=== PATIENT | female | born 1980 | race Caucasian/White ===

== ENCOUNTER 2018-02-15 17:28 | Emergency (ER) | payer MEDICAID ==
[~2018-02-15] VITALS: Ht 162.6 cm; Wt 63.0 kg
[2018-02-15 17:35] VITALS: BP 127/91; PULSE 86; RESP 16; TEMP 98.5; O2SAT 97
--- NOTE | 2018-02-15 18:59 | PD ---
HPI Chief Complaint: Flank/Kidney Pain Time Seen by Provider: 18:50 Travel History International Travel<30 days: No Contact w/Intl Traveler<30days: No Traveled to known affect area: No History of Present Illness HPI 37yo F with PMH of nephrolithiasis presents to the ED with c/o right flank pain today. Associated with nausea, increased urinary frequency. Pt is sharp, nonradiating and moderate severity. No exacerbating or alleviating factors. Denies any fever, chest pain, sob, vomiting, abdominal pain, dysuria, hematuria , vaginal bleeding, focal weakness or numbness. Pt took BC powder. PFSH Past Medical History ?: Unknown Social History Alcohol Use: No Tobacco Use: No Substance Use: No Allergies-Medications (Allergen,Severity, Reaction): Coded Allergies: No Known Allergies (Unverified , 02/15/18) Review of Systems Except as stated in HPI: all other systems reviewed are Neg Physical Exam Narrative GENERAL: 37yo F in moderate distress. SKIN: Focused skin assessment warm/dry. HEAD: Atraumatic. Normocephalic. EYES: Pupils equal and round. No scleral icterus. No injection or drainage. ENT: No nasal bleeding or discharge. Mucous membranes pink and moist. NECK: Trachea midline. No JVD. CARDIOVASCULAR: Regular rate and rhythm. No murmur appreciated. RESPIRATORY: No accessory muscle use. Clear to auscultation. Breath sounds equal bilaterally. GASTROINTESTINAL: Abdomen soft, non-tender, nondistended. No rebound tenderness or guarding. BACK: +CVA tenderness right. MUSCULOSKELETAL: No obvious deformities. No clubbing. No cyanosis. No edema. NEUROLOGICAL: Awake and alert. No obvious cranial nerve deficits. Motor grossly within normal limits. Normal speech. PSYCHIATRIC: Appropriate mood and affect; insight and judgment normal. Data Data Last Documented VS Vital Signs Date Time Temp Pulse Resp B/P (MAP) Pulse Ox O2 Delivery O2 Flow Rate FiO2 02/15/18 19:26 86 16 117/71 (86) 100 Room Air 02/15/18 17:35 98.5 Orders Orders Basic Metabolic Panel (Bmp) (02/15/18 18:55) Complete Blood Count With Diff (02/15/18 18:55) Lipase (02/15/18 18:55) Urinalysis - C+S If Indicated (02/15/18 18:55) Ct Abd/Pel W/O Iv Contrast (02/15/18 18:55) Ketorolac Inj (Toradol Inj) (02/15/18 19:00) Ed Urine Pregnancytest Poc (02/15/18 18:55) Ondansetron Odt (Zofran Odt) (02/15/18 19:00) Morphine Inj (Morphine Inj) (02/15/18 21:15) Labs Laboratory Tests Test 02/15/18 19:15 White Blood Count 8.4 TH/MM3 Red Blood Count 4.50 MIL/MM3 Hemoglobin 10.3 GM/DL Hematocrit 32.3 % Mean Corpuscular Volume 71.9 FL Mean Corpuscular Hemoglobin 22.8 PG Mean Corpuscular Hemoglobin Concent 31.8 % Red Cell Distribution Width 16.4 % Platelet Count 391 TH/MM3 Mean Platelet Volume 8.0 FL Neutrophils (%) (Auto) 59.0 % Lymphocytes (%) (Auto) 30.0 % Monocytes (%) (Auto) 8.9 % Eosinophils (%) (Auto) 1.5 % Basophils (%) (Auto) 0.6 % Neutrophils # (Auto) 5.0 TH/MM3 Lymphocytes # (Auto) 2.5 TH/MM3 Monocytes # (Auto) 0.7 TH/MM3 Eosinophils # (Auto) 0.1 TH/MM3 Basophils # (Auto) 0.1 TH/MM3 CBC Comment DIFF FINAL Differential Comment Urine Color YELLOW Urine Turbidity CLEAR Urine pH 6.5 Urine Specific [place] 1.022 Urine Protein NEG mg/dL Urine Glucose (UA) NEG mg/dL Urine Ketones NEG mg/dL Urine Occult Blood NEG Urine Nitrite NEG Urine Bilirubin NEG Urine Urobilinogen LESS THAN 2.0 MG/DL Urine Leukocyte Esterase NEG Urine RBC 2 /hpf Urine WBC LESS THAN 1 /hpf Urine Squamous Epithelial Cells 2 /hpf Urine Mucus FEW /lpf Microscopic Urinalysis Comment CULT NOT INDICATED Blood Urea Nitrogen 13 MG/DL Creatinine 0.58 MG/DL Random Glucose 81 MG/DL Calcium Level 8.8 MG/DL Sodium Level 139 MEQ/L Potassium Level 3.7 MEQ/L Chloride Level 106 MEQ/L Carbon Dioxide Level 24.0 MEQ/L Anion Gap 9 MEQ/L Estimat Glomerular Filtration Rate 117 ML/MIN Lipase 148 U/L [facility] Medical Decision Making Medical Screen Exam Complete: Yes Emergency Medical Condition: Yes Differential Diagnosis Pyelonephritis vs. nephrolithiasis Narrative Course 37yo F with right back/flank pain today. Denies any falls, no focal neurologic deficits. No red flags. Urine negative. Labs reviewed, no leukocytosis. H/H low at 10.3/32.3, no prior to compare to. Pt denies any bleeding, will have her follow up with primary care. BMP unremarkable. Normal creatinine. Lipase normal. UA showed WBC less than 1. RBC 2. CT a/p showed 3mm nonobstructing right renal stone. No findings to indicate urinary obstruction and no ureteral stone is visualized. No acute abnormality is visualized. There is a small jejunal intussusception in the left upper quadrant. There is no visible masses of obstruction. This can be frequently seen as a transient incidental finding with abdomen and pelvis CT imaging. Pt has no abdominal tenderness on exam. She had normal bowel movement today. Said nausea has resolved. Still in right sided back pain so morphine given. Only PSH is gastric sleeve. I discussed the CT finding with general surgeon labor relations consultant Dr. Robertson and he said that if she has no abdominal pain, it may be an overread when the bowel is peristalsing, may look like intussusception. Advise pt to follow up with him if she has pain. Pt is well appearing and back pain resolved after morphine. Return precautions given. Diagnosis Primary Impression: Back pain Qualified Codes: M54.9 - Dorsalgia, unspecified Referrals: Garret Robertson MD as needed Patient Instructions: General Instructions Departure Forms: Tests/Procedures Additional Instructions: Please follow up with [facility] as outpatient. If you start having abdominal pain, please return to the ED or follow up with Dr. Robertson in his clinic. Med/Other Pt SpecificInfo: Prescription(s) given Scripts Ibuprofen (Ibuprofen) 600 Mg Tab 600 MG PO Q8HR Y for PAIN, #20 TAB 0 Refills Prov: Vicenta Ludwig 02/15/18 Disposition: 01 DISCHARGE HOME Condition: Stable Vicenta Ludwig DO February 15, 2018 18:59
[2018-02-15] MEDS ORDERED: KETOROLAC TROMETHAMINE 30 MG/ML (IVP) VIAL IVP ONE (19:00)
[2018-02-15] MEDS ORDERED: ONDANSETRON ODT 4 MG TAB PO ONE (19:00)
[2018-02-15 19:26] VITALS: BP 117/71; PULSE 86; RESP 16; O2SAT 100
[2018-02-15 19:45] LABS: BASOPHIL # 0.1 TH/MM3 (0-0.2); BASOPHIL % 0.6 % (0.0-2.0); EOSINOPHIL # 0.1 TH/MM3 (0-0.4); EOSINOPHIL % 1.5 % (0.0-4.0); HEMATOCRIT 32.3 % (35.0-46.0); HEMOGLOBIN 10.3 GM/DL (11.6-15.3); LYMPHOCYTE # 2.5 TH/MM3 (1.0-4.8); MEAN CELL VOLUME 71.9 FL (80.0-100.0); MEAN CORPUSCULAR HEMOGLOBIN 22.8 PG (27.0-34.0); MEAN CORPUSCULAR HGB CONC 31.8 % (32.0-36.0); MONO % 8.9 % (0.0-8.0); MONOCYTE # 0.7 TH/MM3 (0-0.9); PLATELET COUNT 391 TH/MM3 (150-450); RED CELL DISTRIBUTION WIDTH 16.4 % (11.6-17.2); WHITE BLOOD COUNT 8.4 TH/MM3 (4.0-11.0)
[2018-02-15 19:52] LABS: BILIRUBIN, URINE NEG (NEG); BLOOD, URINE NEG (NEG); GLUCOSE,URINE NEG (NEG); KETONE, URINE NEG (NEG); MUCUS URINE FEW /lpf (OCC); NITRITE,URINE NEG (NEG); PH, URINE 6.5 (5.0-8.5); SQUAMOUS EPITHELIAL CELL URINE 2 /hpf (0-5); URINE COLOR YELLOW (YELLW/STRAW); URINE LEUKOCYTE ESTERASE NEG (NEG)
[2018-02-15 20:00] LABS: CALCIUM 8.8 MG/DL (8.5-10.1); CREATININE 0.58 MG/DL (0.50-1.00)
--- NOTE | 2018-02-15 20:00 | RADRPT ---
EXAM DATE: 02/15/2018 7:50 PM EDT AGE/SEX: 37 years / Female INDICATIONS: Right flank pain, nausea, frequent urination. CLINICAL DATA: This is the patient's initial encounter. Patient reports that signs and symptoms have been present for 1 day and indicates a pain score of 8/10. MEDICAL/SURGICAL HISTORY: None. None. RADIATION DOSE: 6.15 CTDI (mGy) COMPARISON: No prior [place] exams available for comparison. TECHNIQUE: Multiple contiguous axial images were obtained through the abdomen. Images were obtained using multiple row detector helical technique. Using dose reduction techniques, radiation dose was ke pt as low as reasonably achievable to obtain optimal diagnostic quality images. FINDINGS: Lower chest: No acute abnormality is identified. Hepatobiliary: Liver density is normal. No focal liver lesion is seen on this noncontrast examination . No calcified gallstones are present. Kidneys: No hydronephrosis or mass. There is a 3 mm nonobstructing the right mid intrarenal collectin g system. No ureteral stones are visualized. Adrenal Glands: Within normal limits. Spleen: Within normal limits. Pancreas: Within normal limits. Vascular: The aorta is nonaneurysmal. Bowel/Mesentery: Stomach demonstrates no acute finding. A small hiatal hernia is present and there is a staple line along the greater curvature of a luminally narrowed stomach characteristic of prior ga stric sleeve procedure. There is a small intussusception in the jejunum in the left upper quadrant bu t there are no signs of obstruction or mass. Colon demonstrates no acute finding. Terminal ileum is w ithin normal limits. Appendix is not identified. There is no free air or free fluid. Abdominal Wall: There is a small fat-containing umbilical hernia in the midline superior to the umbil icus. Retroperitoneum: No lymphadenopathy. Bladder: No wall thickening or mass. Reproductive: No acute abnormality. Tampon is present within the vagina. Inguinal: No lymphadenopathy or hernia. Musculoskeletal: No acute osseous abnormality is identified. CONCLUSION: 1. There is a 3 mm nonobstructing right renal stone. However, there are no findings to indicate urin vincent obstruction and no ureteral stone is visualized. No other acute abnormality is visualized. 2. There is a small jejunal intussusception in the left upper quadrant. There is no visible mass or signs of obstruction. This can frequently be seen as a transient incidental finding with abdomen and pelvis CT imaging. Electronically signed by: Zeke Nelson MD 02/15/2018 7:58 PM EDT
[2018-02-15] MEDS ORDERED: MORPHINE SULFATE 4 MG/ML INJ IV PUSH ONE (21:15)
[2018-02-15] MEDS ORDERED: IBUP-232 PO (22:01)
[2018-02-15 22:16] VITALS: BP 123/74
== END 2018-02-15 22:28 | disposition home or self-care (01) ==
LOC: NEPD 17:28
DX: M54.9 Dorsalgia, unspecified (principal)
CPT/HCPCS: 74176; 80048; 81001; 83690; 84703; 85025; 96374; 96375; 99284; J1885; J2270

== ENCOUNTER 2018-06-02 21:06 | Inpatient (IN) ==
--- NOTE | 2018-06-02 22:05 | ED ---
HPI General Chief complaint: Psychiatric Symptoms Stated complaint: Psych Eval-[place] SO Time Seen by Provider: 06/02/18 21:53 History of Present Illness HPI narrative: Patient 38-year-old female presents emergency department under Nuñez act. She states that she is been at odds with her is he has been having a fair. States that she got angry and hit the television with her left hand tonight. She mentioned that she was thinking about hurting herself but states she would never do that because she has kids to care for. She states she has been under a lot of depression as this adjustment has been very tough for her. She does admit to suicidal ideation but without specific planning. She is under Nuñez act. Other than her left hand she is endorsing some mild chest achiness from crying. No shortness of breath no abdominal pain nausea vomiting diarrhea constipation denies any ingestion tonight. Related Data Allergies Allergy/AdvReac Type Severity Reaction Status Date / Time No Known Allergies Allergy Unverified 02/15/18 17:34 Review of Systems ROS: all other systems reviewed are negative [facility] Medical History Medical History Medical history unknown (Acute) Surgical history unknown (Acute) Social History Social History Recent Travel in [facility] within the Last 8 Weeks: No Recent Out of Country Travel within the Last 8 Weeks: No Exam Narrative Exam Narrative: Patient examined with a female acid splicer present all time. GENERAL: Well-developed well-nourished, anxious, crying in no obvious distress. SKIN: Focused skin assessment warm/dry. HEAD: Atraumatic. Normocephalic. EYES: Pupils equal and round. No scleral icterus. No injection or drainage. ENT: No nasal bleeding or discharge. Mucous membranes pink and moist. NECK: Trachea midline. No JVD. CARDIOVASCULAR: Regular rhythm with minimal tachycardia.. No murmur appreciated. RESPIRATORY: No accessory muscle use. Clear to auscultation. Breath sounds equal bilaterally. GASTROINTESTINAL: Abdomen soft, non-tender, nondistended. Hepatic and splenic margins not palpable. MUSCULOSKELETAL: No obvious deformities. No clubbing. No cyanosis. No edema. Some minimal bruising to the dorsum of the left hand over the fourth metatarsal. Full nontender range of motion in all 4 extremities, full nontender range of motion all digits of the left hand. Cap refill brisk in all digits of the left hand. NEUROLOGICAL: Awake and alert. No obvious cranial nerve deficits. Motor grossly within normal limits. Normal speech. PSYCHIATRIC: Depressed mood and affect, insight normal, judgment fair. Endorses suicidal ideation without planning. Course Initial Documented Vital Signs Temperature 98.5 F 06/02/18 21:17 Pulse Rate 103 H 06/02/18 21:17 Respiratory Rate 16 06/02/18 21:17 Blood Pressure 127/76 06/02/18 21:17 Pulse Oximetry 99 06/02/18 21:17 Last Documented Vital Signs Temperature 98.5 F 06/02/18 21:17 Pulse Rate 103 H 06/02/18 21:17 Respiratory Rate 16 06/02/18 21:17 Blood Pressure 127/76 06/02/18 21:17 Pulse Oximetry 99 06/02/18 21:17 Medical Decision Making MDM Narrative Medical decision making narrative: Patient room to the emergency department, she appears depressed, is under Nuñez act, x-rays of the hand have been ordered as well as EKG. Anticipate medical clearance for psychiatric evaluation under Nuñez act. EKG shows sinus rhythm at a rate of 99, intervals within normal limits, no concerning ST segment changes. Normal axis normal R wave progression. This is a normal EKG. Hand x-ray negative. Patient has no other medical complaints of warrant further workup at this time, she is medically cleared for psychiatric evaluation Medical Screen Exam Complete: Yes Emergency Medical Condition: Yes Differential Diagnosis Differential Diagnosis: Hand sprain, hand contusion, hand fracture, ACS highly unlikely, HI highly likely, adjustment disorder, depression peer Lab Data Result diagrams: 06/02/18 22:00 06/02/18 22:00 Lab Results 06/02/18 06/02/18 Range/Units 22:00 22:00 WBC 9.0 (4.0-11.0) th/mm3 RBC 4.41 (4.00-5.30) mil/mm3 Hgb 9.6 L (11.6-15.3) gm/dL Hct 31.5 L (35.0-46.0) % MCV 71.4 L (80.0-100.0) fL MCH 21.8 L (27.0-34.0) pg MCHC 30.6 L (32.0-36.0) % RDW 17.9 H (11.6-17.2) % Plt Count 346 (150-450) th/mm3 MPV 8.0 (7.0-11.0) fL Neut % (Auto) 78.2 H (16.0-70.0) % Lymph % (Auto) 13.3 (9.0-44.0) % [place] % (Auto) 7.9 (0.0-8.0) % Eos % (Auto) 0.1 (0.0-4.0) % Baso % (Auto) 0.5 (0.0-2.0) % Neut # (Auto) 7.0 (1.8-7.7) th/mm3 Lymph # (Auto) 1.2 (1.0-4.8) th/mm3 [place] # (Auto) 0.7 (0.0-0.9) th/mm3 Eos # (Auto) 0.0 (0.0-0.4) th/mm3 Baso # (Auto) 0.0 (0.0-0.2) th/mm3 WBC Differential . Differential Comment Auto diff final Sodium 144 (136-145) meq/L Potassium 3.4 L (3.5-5.1) meq/L Chloride 108 H (98-107) meq/L Carbon Dioxide 23.6 (21.0-32.0) meq/L Anion Gap 12 (5-15) meq/L BUN 9 (7-18) mg/dL Creatinine 0.84 (0.50-1.00) mg/dL Estimated GFR 76 L (>89) mL/min Random Glucose 96 (74-106) mg/dL Calcium 8.6 (8.5-10.1) mg/dL Total Bilirubin 0.4 (0.2-1.0) mg/dL AST 10 L (15-37) U/L ALT 16 (10-53) U/L Alkaline Phosphatase 54 (45-117) U/L Total Protein 7.7 (6.4-8.2) g/dL Albumin 3.9 (3.4-5.0) g/dL TSH 1.350 (0.358-3.740) uIU/mL Serum Alcohol 71 H (0-5) mg/dL Imaging Data Radiologist's impression: Hand X-Ray 06/02/18 22:00 CONCLUSION: No evidence of fracture. Discharge Plan Discharge Disposition Patient Disposition: 30 Still Patient Physicians Team ED Provider: Bernardino Paz Primary Care Provider: Primary Care Luis Fi,No Discharge Interventions Interventions: Vital Signs Last Done: 06/02/18 21:17 Status ED Status: Medically Cleared
[2018-06-02 22:39] LABS: Baso % (Auto) 0.5 % (0.0-2.0); Eos % (Auto) 0.1 % (0.0-4.0); Hematocrit 31.5 % (35.0-46.0); Hemoglobin 9.6 gm/dL (11.6-15.3); Lymph # (Auto) 1.2 th/mm3 (1.0-4.8); Lymph % (Auto) 13.3 % (9.0-44.0); Mean Corpuscular Hemoglobin 21.8 pg (27.0-34.0); Mean Corpuscular Volume 71.4 fL (80.0-100.0); Mono # (Auto) 0.7 th/mm3 (0.0-0.9); Mono % (Auto) 7.9 % (0.0-8.0); Neut % (Auto) 78.2 % (16.0-70.0); Platelet Count 346 th/mm3 (150-450); Red Blood Count 4.41 mil/mm3 (4.00-5.30); Red Cell Distribution Width 17.9 % (11.6-17.2)
--- NOTE | 2018-06-02 22:41 | XR ---
EXAM DATE: 06/02/2018 10:35 PM EDT AGE/SEX: 38 years / Female INDICATIONS: Left lateral hand pain. Patient stated she hit it on a television. CLINICAL DATA: This is the patient's initial encounter. Patient reports that signs and symptoms have been present for 1 day and indicates a pain score of 5/10. MEDICAL/SURGICAL HISTORY: None. None. COMPARISON: No prior exams available for comparison. FINDINGS: 3 views left hand. Bone alignment within normal limits. No evidence of fracture. CONCLUSION: No evidence of fracture. Electronically signed by: Stephon Jin MD 06/02/2018 10:40 PM EDT
[2018-06-02 22:46] LABS: Mean Corpuscular HGB Conc 30.6 % (32.0-36.0)
[2018-06-02 22:51] LABS: Alanine Aminotransferase 16 U/L (10-53); Albumin 3.9 g/dL (3.4-5.0); Anion Gap 12 meq/L (5-15); Aspartate Aminotransferase 10 U/L (15-37); Blood Urea Nitrogen 9 mg/dL (7-18); Calcium 8.6 mg/dL (8.5-10.1); Carbon Dioxide 23.6 meq/L (21.0-32.0); Chloride 108 meq/L (98-107); Glomerular Filtration Rate 76 mL/min (>89); Glucose,Random 96 mg/dL (74-106); Potassium 3.4 meq/L (3.5-5.1); Sodium 144 meq/L (136-145)
[2018-06-02 23:01] LABS: Alkaline Phosphatase 54 U/L (45-117); Total Protein 7.7 g/dL (6.4-8.2)
[2018-06-02 23:03] LABS: Alcohol 71 mg/dL (0-5)
[2018-06-03] MEDS ORDERED: LORazepam 1 MG Tablet PO ONE (00:57)
[2018-06-03 09:03] LABS: Amphetamine Screen,Urine Neg (Neg); Barbiturate Screen,Urine Neg (Neg); Cannabinoid Screen,Urine Neg (Neg); Cocaine Screen,Urine Neg (Neg)
[2018-06-03 09:10] LABS: Opiate Screen,Urine Neg (Neg)
[2018-06-03] MEDS ORDERED: Aluminum/Magnesium/Simethacone Susp 30 ML UDC PO PRN (09:29)
[2018-06-03] MEDS ORDERED: buPROPion 150 MG 12 HR Tablet PO SCH (09:30)
[2018-06-03] MEDS ORDERED: LORazepam 1 MG Tablet PO PRN (09:31)
--- NOTE | 2018-06-03 09:37 | P.HPPSY ---
Provisional Diagnosis Admission Date: June 02, 2018 21:06 [place] I.: 1. Adjustment disorder with depressed mood, rule out major depressive episode 2. Alcohol use, rule out use disorder [place] II.: Deferred Competence Certification of Person's Competence To Provide Express and Informed Consent I have personally examined Nancy Stevens, a person being served at [facility] on, June 03, 2018 0933. Express and informed consent means consent voluntarily given in writing, by a competent person, after sufficient explanation and disclosure of the subject matter involved to enable the person to make a knowing and willful decision without any element of force, fraud, deceit, duress, or other form of constraint or coercion. This person is 18 years of age or older, is not now known to be incompetent to consent to treatment with a guardian advocate, and does not have a health care surrogate or proxy currently making medical treatment decisions. I have found this person to be one of the following: [X] Competent to provide express and informed consent, as defined above, for voluntary admission to this facility and is competent to provide express and informed consent for treatment. He/she has the consistent capacity to make well reasoned, willful, and knowing decisions concerning his or her medical or mental health treatment. The person fully and consistently understands the purpose of the admission for examination/placement and is fully capable of personally exercising all rights assured [place] Incompetent to provide express and informed consent to voluntary admission, and this is incompetent to provide express and informed consent to treatment. The person must be transferred to involuntary status and a petition for a guardian advocate filed with the Circuit Court. [] Refusing to provide express and informed consent to voluntary admission but is competent to provide express and informed consent for treatment. The person must be discharged or transferred to involuntary status. Form shall be completed within 24 hours of a person's arrival at the receiving facility and filed in the clinical record of each person: 1. Admitted on a voluntary basis 2. Permitted to provide express and informed consent to his/her own treatment 3. Allowed to transfer from involuntary to voluntary status 4. Prior to permitting a person to consent to his or her own treatment after having been previously found incompetent to consent to treatment. History of Present Illness Capacity: Has capacity Chief Complaint: Depression History of Present Illness: Ms. Stevens is a 38-year-old female with no reported previous psychiatric diagnoses who presents under a [place] act by law enforcement alleging that the patient has been going through a breakup with her and made statements that she is going to harm herself or someone else if she does not get some mental help. Patient's alcohol level was mildly elevated on presentation here. Reviewing the electronic medical record, I see no previous psychiatric contact within our system. Patient seen and examined. Chart reviewed. Case discussed with nurse, Rubi. On my examination today, the patient presents as irritable and dysphoric. She says that she discovered her 's repeat infidelity about a week or 2 ago and has been feeling increasingly dysphoric since then. She notes that he has been unfaithful in the past but that this is the first time in a long time that he has engaged in marital infidelity. She endorses poor sleep, poor appetite, anxiety. She denies any suicidal ideation and says that she wants to live for her children. She feels that she has always had "a mild form of depression" throughout her life. She says that she cannot cope with her emotions are present. I can elicit no hypomanic or manic symptoms presently , nor does the patient described any history of same. She denies any audiovisual hallucinations. She denies any command auditory hallucinations to hurt self or others. I can elicit no delusional material. The remainder of the psychiatric ROS is negative. The patient is agreeable to psychiatric admission for stabilization. She has no acute physical complaints. Past psychiatric history: The patient reports no previous psychiatric diagnoses. She is not currently under the care of a psychiatrist. She denies a history of psychiatric admissions or suicide attempts. Family history: Patient's father and mother both struggled with depression and both by suicide, her father by overdose in her mother by self-inflicted gunshot wound. Chemical dependency history: Patient describes social alcohol use. She denies any history of DTs or seizures. Denies any consequences from her substance use. Denies any other substance use. Social history: Patient lives with her and 3 children. She has a 16- year-old son and twin 13-year-old girls. 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 She denies any history of trauma. Denies any access to guns or firearms. Review of Systems All other systems reviewed negative except as stated in HPI [facility] - History History Provided By: Patient - Medical History Medical History: Medical History (Last Updated 06/02/18 @ 21:59 by Paul Desai) Medical history unknown Surgical history unknown - Tobacco History Second Hand Smoke Exposure: Yes Tobacco Use In Past 30 Days: Yes Smoking Status: Current every day smoker Tobacco Type: Cigarettes - Alcohol History How Often Do You Have a Drink Containing Alcohol: Monthly or less - Travel History Recent Travel in the USA Within the Last 8 Weeks: No Recent Travel Out of the Country Within the Last 8 Weeks: No - Immunization History Tetanus Immunization: Unsure Hx Influenza Vaccine This Season: No Quality Measures - Psychiatric History Psychological trauma history: See above - Patient Strengths Patient's strengths (minimum of 2): In a monitored setting. Verbally fluent. Medications and Allergies Active Medications: Active Medications Acetaminophen (Tylenol) 650 mg PO Q4H PRN PRN Reason: Pain 1-5 or Temp >101F Al Hydrox/Mg Hydrox/Simethicone (Mag-Al Plus Susp Liq) 30 ml PO Q6H PRN PRN Reason: DYSPEPSIA Al Hydroxide/Mg Hydroxide (Milk Of Magnesia Liq) 30 ml PO Q12H PRN PRN Reason: Mild Constipation Bupropion HCl (Wellbutrin Sr) 150 mg PO DAILY [facility] Flumazenil (Romazecon Inj) 0.2 mg IV.PUSH Q1M PRN PRN Reason: OVERSEDATION Folic Acid (Folic Acid) 1 mg PO DAILY [facility] Stop: 06/08/18 09:44 Hydroxyzine HCl (Atarax) 50 mg PO Q6H PRN PRN Reason: ANXIETY Lorazepam (Ativan) 1 mg PO Q4H PRN PRN Reason: for CIWA 8-10 Lorazepam (Ativan) 2 mg PO Q2H PRN PRN Reason: for CIWA 11-14 Lorazepam (Ativan Inj) 2 mg IV.PUSH Q2H PRN PRN Reason: for CIWA 11-14 Lorazepam (Ativan Inj) 2 mg IV.PUSH Q1H PRN PRN Reason: for CIWA 15-20 Lorazepam (Ativan Inj) 2 mg IV.PUSH Q15M PRN PRN Reason: for CIWA > 20 Lorazepam (Ativan Inj) 1 mg IV.PUSH Q4H PRN PRN Reason: for CIWA 8-10 Multivitamins/Minerals (Theragran-M) 1 tab PO DAILY [facility] Stop: 06/08/18 09:44 Nicotine (Habitrol 21 Mg Patch.24 Hr) 1 patch T-DERMAL DAILY PRN PRN Reason: Nicotine craving Patch Removal (Remove Old Patch) 1 each T-DERMAL DAILY [facility] Potassium Chloride (K-Dur) 20 meq PO ONCE ONE Stop: 06/03/18 09:29 Trazodone HCl (Desyrel) 50 mg PO HS PRN PRN Reason: INSOMNIA Allergies Allergy/AdvReac Type Severity Reaction Status Date / Time No Known Allergies Allergy Unverified 02/15/18 17:34 Home Medications Medication Instructions Recorded Confirmed Type No Known Home Medications 06/02/18 06/02/18 History Results - Labs CBC & Chem 7: 06/02/18 22:00 06/02/18 22:00 Labs: Laboratory Results - last 24 hr 06/02/18 06/02/18 06/03/18 22:00 22:00 08:39 WBC 9.0 RBC 4.41 Hgb 9.6 L Hct 31.5 L MCV 71.4 L MCH 21.8 L MCHC 30.6 L RDW 17.9 H Plt Count 346 MPV 8.0 Neut % (Auto) 78.2 H Lymph % (Auto) 13.3 [place] % (Auto) 7.9 Eos % (Auto) 0.1 Baso % (Auto) 0.5 Neut # (Auto) 7.0 Lymph # (Auto) 1.2 [place] # (Auto) 0.7 Eos # (Auto) 0.0 Baso # (Auto) 0.0 WBC Differential . Differential Comment Auto diff final Sodium 144 Potassium 3.4 L Chloride 108 H Carbon Dioxide 23.6 Anion Gap 12 BUN 9 Creatinine 0.84 Estimated GFR 76 L Random Glucose 96 Calcium 8.6 Total Bilirubin 0.4 AST 10 L ALT 16 Alkaline Phosphatase 54 Total Protein 7.7 Albumin 3.9 TSH 1.350 Urine Opiates Screen Neg Ur Barbiturates Screen Neg Ur Amphetamines Screen Neg U Benzodiazepines Scrn Neg Urine Cocaine Screen Neg U Cannabinoids Screen Neg Serum Alcohol 71 H Labs reviewed. Mildly elevated alcohol level noted. Microcytic anemia noted. TSH within normal limits. Hypokalemia noted, and I have ordered repletion. - Imaging Impressions Hand X-Ray 06/02/18 22:00 CONCLUSION: No evidence of fracture. Exam Vital signs: Vital Signs 06/02/18 21:17 06/02/18 23:52 06/03/18 02:15 Temperature 98.5 F Pulse Rate 103 H 95 H 97 H Respiratory Rate 16 16 16 Blood Pressure 127/76 Pulse Oximetry 99 98 99 06/03/18 05:37 06/03/18 08:00 Temperature Pulse Rate 99 H 100 H Respiratory Rate 16 16 Blood Pressure 125/74 117/68 Pulse Oximetry 100 10 L Intake & Output 06/02/18 06/03/18 06/03/18 18:59 06:59 18:59 Weight 68.039 kg Narrative: Physical examination was completed by the ED provider. On my examination today , the patient appears to be in no acute physical distress. No motor abnormalities noted. In particular no hand tremor, no diaphoresis, no mydriasis , no signs of GABAergic withdrawal. No signs of intoxication noted. Labs and vitals reviewed. Mental Status Examination Appearance: Appropriate Consciousness: Alert Orientation: x4 Motor Activity: Other (No motor abnormalities noted) Speech: Unremarkable Language: Adequate Fund of Knowledge: Adequate Attention and Concentration: Adequate Memory: Unremarkable (Grossly intact on clinical exam.) Mood: Irritable, Other (Dysphoric) Affect: Other (Consistent with mood) Thought Process & Associations: Intact, Logical, Linear Thought Content: Appropriate Hallucination Type: None Delusion Type: None Suicidal Ideation: No Suicidal Plan: No Suicidal Intention: No Homicidal Ideation: No Homicidal Plan: No Homicidal Intention: No Insight: Fair Judgment: Impulsive Assessment and Plan - Assessment (1) Adjustment disorder with depressed mood Code(s): F43.21 - Adjustment disorder with depressed mood Status: Acute (2) Alcohol use Code(s): Z78.9 - Other specified health status Status: Acute - Plan Plan: This is a 38-year-old female with psychiatric history as detailed above who presents under a Nuñez act. On my examination today, the patient denies suicidal ideation but does seem quite dysphoric and endorses several symptoms of depression. Although she may be experiencing an adjustment reaction, it is also possible that she is experiencing the onset of a major depressive episode. She has a strong family history of depression as well as a family history of suicide attempts. I am concerned that she is at elevated risk for ongoing self- harm and requires admission to the inpatient psychiatric unit for safety, observation and stabilization. Admit inpatient. Voluntary status. Patient is opposed to any psychotropic medication that may cause weight gain and so I will initiate Wellbutrin SR 150 mg daily with plans to titrate after appropriate interval to 150 mg twice daily. She denies a history of seizure or eating disorder. Atarax as needed for anxiety. Trazodone as needed for sleep. R/B/A for medications discussed with patient. I will check follow-up CBC, BMP, magnesium as well as an iron panel in the morning for patient's microcytic anemia. I will replete potassium now. I will check a beta hCG now. Vitals every shift. Counselor to see. Collateral information. Disposition planning. Estimated length of stay: 3-5 days. Justification for Continued Inpatient Stay: See above Discharge Planning: Pending psychiatric stabilization Request Healthcare Surrogate/Guardian Advocate?: No
[2018-06-03] MEDS: Multivitamin/Minerals Therapeutic Tablet PO SCH (11:46)
[2018-06-03] MEDS: Folic Acid 1 MG Tablet PO SCH (11:46)
[2018-06-03] MEDS: buPROPion 150 MG 12 HR Tablet PO SCH (11:46)
--- NOTE | 2018-06-03 13:55 | ECG ---
Date Performed: 06/03/2018 Time Performed: 08:11:42 PTAGE: 38 years EKG: SINUS TACHYCARDIA NONSPECIFIC ST & T-WAVE ABNORMALITY ABNORMAL RHYTHM ECG INTERPRETATION BA SED ON A DEFAULT AGE OF 40 YEARS PREVIOUS TRACING : 06/02/2018 22.09 DOCTOR: Ruthie Villafana Interpretating Date/Time 06/03/2018 13:54:49
--- NOTE | 2018-06-03 14:03 | ECG ---
Date Performed: 06/02/2018 Time Performed: 22:09:40 PTAGE: 38 years EKG: Sinus rhythm NONSPECIFIC T-WAVE ABNORMALITY BORDERLINE ECG NO PREVIOUS TRACING DOCTOR: Ruthie Villafana Interpretating Date/Time 06/03/2018 14:01:13
[2018-06-03] MEDS: traZODone 50 MG Tablet PO PRN (21:39)
[2018-06-04] MEDS: Acetaminophen 325 MG Tablet PO PRN ×2 (04:35→10:25)
[2018-06-04 10:24] LABS: Baso % (Auto) 0.8 % (0.0-2.0); Eos # (Auto) 0.1 th/mm3 (0.0-0.4); Eos % (Auto) 2.1 % (0.0-4.0); Hematocrit 28.4 % (35.0-46.0); Hemoglobin 8.9 gm/dL (11.6-15.3); Lymph # (Auto) 0.8 th/mm3 (1.0-4.8); Lymph % (Auto) 19.9 % (9.0-44.0); Mean Corpuscular HGB Conc 31.5 % (32.0-36.0); Mean Corpuscular Hemoglobin 22.3 pg (27.0-34.0); Mean Corpuscular Volume 70.6 fL (80.0-100.0); Mean Platelet Volume 8.1 fL (7.0-11.0); Mono # (Auto) 0.6 th/mm3 (0.0-0.9); Mono % (Auto) 13.7 % (0.0-8.0); Neut # (Auto) 2.7 th/mm3 (1.8-7.7); Neut % (Auto) 63.5 % (16.0-70.0); Platelet Count 270 th/mm3 (150-450); Red Blood Count 4.02 mil/mm3 (4.00-5.30); Red Cell Distribution Width 17.9 % (11.6-17.2); White Blood Count 4.2 th/mm3 (4.0-11.0)
[2018-06-04] MEDS: Multivitamin/Minerals Therapeutic Tablet PO SCH (10:25)
[2018-06-04] MEDS: buPROPion 150 MG 12 HR Tablet PO SCH (10:25)
[2018-06-04] MEDS: Folic Acid 1 MG Tablet PO SCH (10:25)
[2018-06-04 10:33] LABS: Anion Gap 9 meq/L (5-15); Blood Urea Nitrogen 13 mg/dL (7-18); Calcium 8.2 mg/dL (8.5-10.1); Carbon Dioxide 25.1 meq/L (21.0-32.0); Chloride 107 meq/L (98-107); Glomerular Filtration Rate Greater Than 89 mL/min (>89); Glucose,Random 83 mg/dL (74-106); Iron 23 mcg/dL (50-170); Magnesium 2.1 mg/dL (1.5-2.5); Potassium 4.2 meq/L (3.5-5.1); Sodium 141 meq/L (136-145)
[2018-06-04 10:44] LABS: % Iron Saturation 5.9 % (20-50); Chol/HDL Ratio 2.48 Ratio; Cholesterol 135 mg/dL (120-200); Ferritin 4 ng/mL (8-252); HDL Cholesterol 54.3 mg/dL (40.0-60.0); LDL Cholesterol,Calculated 64 mg/dL (0-99); Total Iron Binding Capacity 392 mcg/dL (250-450); Triglycerides 84 mg/dL (42-150)
[2018-06-04 13:07] LABS: Hemoglobin A1c 5.8 % (4.3-6.0)
--- NOTE | 2018-06-04 14:12 | P.PNPSY ---
Subjective Chief Complaint: Depression Remarks: Patient seen and examined with nurse. Chart reviewed. Case discussed with nursing staff. Case discussed with counselor. On my examination today, the patient complains that her anxiety medication (Atarax) is too strong. She does continue to have some anxiety and wonders if she could make do with the lesser dose. Mood remains somewhat depressed but no current suicidal ideation voiced. Denies side effects from medications. No physical complaints. Interested in counseling outside of the hospital. Vital Signs Temp Pulse Resp BP Pulse Ox 06/04/18 06:00 97.8 F 83 17 116/61 95 06/04/18 04:00 97.8 F 83 17 116/61 97 Intake and Output 06/03/18 06/04/18 06/04/18 22:59 06:59 14:59 Other: Date of Last Bowel Movement 06/02/18 06/04/18 Laboratory Results - last 24 hr 06/04/18 06/04/18 06/04/18 09:20 09:20 09:20 WBC 4.2 RBC 4.02 Hgb 8.9 L Hct 28.4 L MCV 70.6 L MCH 22.3 L MCHC 31.5 L RDW 17.9 H Plt Count 270 MPV 8.1 Neut % (Auto) 63.5 Lymph % (Auto) 19.9 [place] % (Auto) 13.7 H Eos % (Auto) 2.1 Baso % (Auto) 0.8 Neut # (Auto) 2.7 Lymph # (Auto) 0.8 L [place] # (Auto) 0.6 Eos # (Auto) 0.1 Baso # (Auto) 0.0 WBC Differential . Differential Comment Auto diff final Sodium 141 Potassium 4.2 D Chloride 107 Carbon Dioxide 25.1 Anion Gap 9 BUN 13 Creatinine 0.70 Estimated GFR Greater than 89 Random Glucose 83 Hemoglobin A1c 5.8 Calcium 8.2 L Magnesium 2.1 Iron 23 L TIBC 392 % Saturation 5.9 L Ferritin 4 L Triglycerides 84 Cholesterol 135 LDL Cholesterol, Calc 64 HDL Cholesterol 54.3 Cholesterol/HDL Ratio 2.48 Labs reviewed. Worsening microcytic anemia noted. Iron studies not inconsistent with iron deficiency anemia. Review of Systems All other systems reviewed negative except as stated in HPI Mental Status Examination Appearance: Appropriate Consciousness: Alert Orientation: x4 Motor Activity: Other (No abnormal motor movements noted) Speech: Unremarkable Language: Adequate Fund of Knowledge: Adequate Attention and Concentration: Adequate Memory: Unremarkable (Grossly intact on clinical exam.) Mood: Other (Somewhat dysphoric) Affect: Other (Consistent with mood) Thought Process & Associations: Intact, Logical, Linear Thought Content: Appropriate Hallucination Type: None Delusion Type: None Suicidal Ideation: No Suicidal Plan: No Suicidal Intention: No Homicidal Ideation: No Homicidal Plan: No Homicidal Intention: No Insight: Fair Judgment: Impulsive Assessment and Plan - Assessment (1) Adjustment disorder with depressed mood Code(s): F43.21 - Adjustment disorder with depressed mood Status: Acute (2) Alcohol use Code(s): Z78.9 - Other specified health status Status: Acute - Plan Plan: Continue Wellbutrin as ordered. I will decrease dose of Atarax to 25 mg per dose. Add iron supplement and consult hospitalist for worsening microcytic anemia. Continue to monitor on the inpatient unit. Counselor to call for collateral information; Case discussed with counselor. Continue other care as ordered. Justification for Continued Inpatient Stay: Risk for decompensation in less restrictive environment. Discharge Planning: Pending psychiatric stabilization. Possible discharge next 1-2 days if the patient can be medically cleared and reassuring collateral information obtained. Request Healthcare Surrogate/Guardian Advocate?: No
[2018-06-04] MEDS: Ferrous Sulfate 325 MG Tablet PO SCH (17:13)
[2018-06-04] MEDS: traZODone 50 MG Tablet PO PRN (21:32)
[2018-06-05 05:52] VITALS: BP 132/52; PULSE 91; RESP 16; TEMP 98.6; O2SAT 99
[2018-06-05] MEDS: buPROPion 150 MG 12 HR Tablet PO SCH (08:57)
[2018-06-05] MEDS: Multivitamin/Minerals Therapeutic Tablet PO SCH (08:57)
[2018-06-05] MEDS: Folic Acid 1 MG Tablet PO SCH (08:57)
[2018-06-05] MEDS: Acetaminophen 325 MG Tablet PO PRN (10:46)
--- NOTE | 2018-06-05 10:48 | P.TTN ---
- Patient Problems Problems: 1. Discharge planning 2. Medication compliance 3. Knowledge deficit 4. Lack of coping skills - Progress Toward Goals Provider Present: Dr. Ganga Munson Provider Input: 06/05/18 anticipated discharge home today since collateral with was completed, patient will need med management follow up and in need for therapy Psychiatric Counselors Present: Tatianna Hernández LCSW Psychiatric Therapist Input: patient is established with marriage counseling. since she needs medications and has no insurance will link her with [facility] and she can have individual counseling at [facility]. called yesterday and he is supportive and open to have her home today and will pick her up Group Spec/RT/OT/SCOTT Present: Trevin Fragoso OT (attends some / most groups and visible in milieu and insightful ) - Documentation Teaching Recipient: Patient
[2018-06-05] MEDS: Ferrous Sulfate 325 MG Tablet PO SCH (13:21)
--- NOTE | 2018-06-05 14:25 | P.CONIM ---
History of Present Illness Service: [facility] Consult date: 06/05/18 Primary Care Provider: No Primary Care Physician Chief Complaint: anemia with history of gastric sleeve surgery History of Present Illness: Ms. Stevens is a 38-year-old female with no reported previous psychiatric diagnoses who presents under a [place] act by law enforcement alleging that the patient has been going through a breakup with her and made statements that she is going to harm herself or someone else if she does not get some mental help. Patient's alcohol level was mildly elevated on presentation here. Medicine team being consulted for worsening anemia. Patient seen and evaluated in the room, with staff at the door. Pt stated she is going home today. Patient complaints of lower back pain, without any radiation, worse at night when lying down, better when moving around. Patient stated better when taking ibuprofen at home. Patient denies any headache or dizziness, denies any nausea, vomiting or diarrhea, denies any fever or chills. Patient denies any smoking, but admitted to be drinking alcohol 2-3 beers or wine at night. Patient denies any withdrawal symptoms. Denies any tremors,or dizziness. Patient admitted to have chronic anemia with history of gastric sleeve, stated she lost about 100 pounds. Review of Systems All other systems reviewed negative except as stated in HPI [facility] - History History Provided By: Patient - Medical History Medical History: Medical History (Last Updated 06/02/18 @ 21:59 by Paul Desai) Medical history unknown Surgical history unknown - Surgical History Surgical History: Surgical History (Last Updated 06/05/18 @ 15:40 by CASI Stahl) History of gastric surgery (Acute) - Family History Family History: Family History (Last Updated 06/05/18 @ 15:42 by CASI Stahl) Mother Spinal accessory nerve disease or syndrome Depression Fibromyalgia Neuropathy Family history of diabetes mellitus - Social History I have reviewed the patient's Social History: Yes - Tobacco History Second Hand Smoke Exposure: Yes Tobacco Use In Past 30 Days: No Smoking Status: Never smoker Tobacco Type: Cigarettes - Alcohol History How Often Do You Have a Drink Containing Alcohol: 4 or more times a week - Substance Use History Substance History: No History of Abuse - Travel History Recent Travel in the [place] Within the Last 8 Weeks: No Recent Travel Out of the Country Within the Last 8 Weeks: No - Immunization History Tetanus Immunization: <5 Years Hx Influenza Vaccine This Season: No Medications and Allergies Active Medications: Active Medications Acetaminophen (Tylenol) 650 mg PO Q4H PRN PRN Reason: Pain 1-5 or Temp >101F Last Admin: 06/05/18 10:46 Dose: 650 mg Al Hydrox/Mg Hydrox/Simethicone (Mag-Al Plus Susp Liq) 30 ml PO Q6H PRN PRN Reason: DYSPEPSIA Al Hydroxide/Mg Hydroxide (Milk Of Magnesia Liq) 30 ml PO Q12H PRN PRN Reason: Mild Constipation Bupropion HCl (Wellbutrin Sr) 150 mg PO DAILY [facility] Last Admin: 06/05/18 08:57 Dose: 150 mg Ferrous Sulfate (Ferosul) 325 mg PO BID@1200,1700 [facility] Last Admin: 06/05/18 13:21 Dose: 325 mg Flumazenil (Romazecon Inj) 0.2 mg IV.PUSH Q1M PRN PRN Reason: OVERSEDATION Folic Acid (Folic Acid) 1 mg PO DAILY [facility] Stop: 06/08/18 09:44 Last Admin: 06/05/18 08:57 Dose: 1 mg Hydroxyzine HCl (Atarax) 25 mg PO Q6H PRN PRN Reason: ANXIETY Last Admin: 06/05/18 04:47 Dose: 25 mg Lorazepam (Ativan) 1 mg PO Q4H PRN PRN Reason: for CIWA 8-10 Last Admin: 06/05/18 10:46 Dose: 1 mg Lorazepam (Ativan) 2 mg PO Q2H PRN PRN Reason: for CIWA 11-14 Lorazepam (Ativan Inj) 2 mg IV.PUSH Q2H PRN PRN Reason: for CIWA 11-14 Lorazepam (Ativan Inj) 2 mg IV.PUSH Q1H PRN PRN Reason: for CIWA 15-20 Lorazepam (Ativan Inj) 2 mg IV.PUSH Q15M PRN PRN Reason: for CIWA > 20 Lorazepam (Ativan Inj) 1 mg IV.PUSH Q4H PRN PRN Reason: for CIWA 8-10 Multivitamins/Minerals (Theragran-M) 1 tab PO DAILY [facility] Stop: 06/08/18 09:44 Last Admin: 06/05/18 08:57 Dose: 1 tab Nicotine (Habitrol 21 Mg Patch.24 Hr) 1 patch T-DERMAL DAILY PRN PRN Reason: Nicotine craving Patch Removal (Remove Old Patch) 1 each T-DERMAL DAILY [facility] Last Admin: 06/05/18 09:38 Dose: Not Given Thiamine HCl (Vitamin B1) 100 mg PO DAILY [facility] Last Admin: 06/05/18 08:57 Dose: 100 mg Trazodone HCl (Desyrel) 50 mg PO HS PRN PRN Reason: INSOMNIA Last Admin: 06/04/18 21:32 Dose: 50 mg Allergies Allergy/AdvReac Type Severity Reaction Status Date / Time No Known Allergies Allergy Unverified 02/15/18 17:34 Home Medications Medication Instructions Recorded Confirmed Type No Known Home Medications 06/02/18 06/02/18 History Exam Vital signs: Vital Signs 06/04/18 18:48 06/05/18 05:51 Temperature 98.2 F 98.6 F Pulse Rate 92 H 91 H Respiratory Rate 18 16 Blood Pressure 115/65 132/52 L Pulse Oximetry 97 99 Intake & Output 06/04/18 06/05/18 06/05/18 18:59 06:59 18:59 Other: Date of Last Bowel Movement 06/04/18 06/04/18 Narrative: GENERAL: pt awake, alert and oriented x 3, well developed, well nourished with no apparent distress SKIN: Warm and dry. HEAD: Atraumatic. Normocephalic. EYES: Pupils equal and round. No scleral icterus. No injection or drainage. ENT: No nasal bleeding or discharge. Mucous membranes pink and moist. NECK: Trachea midline. No JVD. CARDIOVASCULAR: Regular rate and rhythm. RESPIRATORY: No accessory muscle use. Clear to auscultation. Breath sounds equal bilaterally. GASTROINTESTINAL: Abdomen soft, non-tender, nondistended. Hepatic and splenic margins not palpable. MUSCULOSKELETAL: Extremities without clubbing, cyanosis, or edema. No obvious deformities. NEUROLOGICAL: Awake and alert. No obvious cranial nerve deficits. Motor grossly within normal limits. Five out of 5 muscle strength in the arms and legs. Normal speech. PSYCHIATRIC: Appropriate mood and affect; insight and judgment normal. Results - Labs CBC & Chem 7: 06/04/18 09:20 06/04/18 09:20 Assessment and Plan - Plan Ms. Stevens is a 38-year-old female with no reported previous psychiatric diagnoses who presents under a [place] act by law enforcement alleging that the patient has been going through a breakup with her and made statements that she is going to harm herself or someone else if she does not get some mental help. Patient's alcohol level was mildly elevated on presentation here. Adjustment Disorder/Depression -under Psychiatric care Alcohol dependence -counseling on Alcohol use cessation -add MVI, folic acid Microcytic Anemia likely due to alcohol dependence -increase FeSo4, add MVI -monitor CBC -follow up with PCP upon discharge Low back pain/chronic - exercises -prn Tylenol for pain DVT Prophylaxis; ambulatory Discussed Condition With: Patient, nurse, Dr. Munson Discharge Planning: Follow up with PCP for Anemia
--- NOTE | 2018-06-05 15:21 | P.DSPSY ---
Psychiatry Discharge Summary Inpatient Psychiatric care?: Yes Advance Directives: No Mental Health Advance Directive: No Health Care Proxy: No - Admission Admission Date: June 03, 2018 09:26 - Admission Diagnosis (1) Adjustment disorder with depressed mood Code(s): F43.21 - Adjustment disorder with depressed mood (2) Alcohol use Code(s): Z78.9 - Other specified health status Brief History: Ms. Stevens is a 38-year-old female with no reported previous psychiatric diagnoses who presents under a [place] act by law enforcement alleging that the patient has been going through a breakup with her and made statements that she is going to harm herself or someone else if she does not get some mental help. Patient's alcohol level was mildly elevated on presentation here. Reviewing the electronic medical record, I see no previous psychiatric contact within our system. Patient seen and examined. Chart reviewed. Case discussed with nurse, Rubi. On my examination today, the patient presents as irritable and dysphoric. She says that she discovered her 's repeat infidelity about a week or 2 ago and has been feeling increasingly dysphoric since then. She notes that he has been unfaithful in the past but that this is the first time in a long time that he has engaged in marital infidelity. She endorses poor sleep, poor appetite, anxiety. She denies any suicidal ideation and says that she wants to live for her children. She feels that she has always had "a mild form of depression" throughout her life. She says that she cannot cope with her emotions are present. I can elicit no hypomanic or manic symptoms presently , nor does the patient described any history of same. She denies any audiovisual hallucinations. She denies any command auditory hallucinations to hurt self or others. I can elicit no delusional material. The remainder of the psychiatric ROS is negative. The patient is agreeable to psychiatric admission for stabilization. She has no acute physical complaints. Past psychiatric history: The patient reports no previous psychiatric diagnoses. She is not currently under the care of a psychiatrist. She denies a history of psychiatric admissions or suicide attempts. Family history: Patient's father and mother both struggled with depression and both by suicide, her father by overdose in her mother by self-inflicted gunshot wound. Chemical dependency history: Patient describes social alcohol use. She denies any history of DTs or seizures. Denies any consequences from her substance use. Denies any other substance use. Social history: Patient lives with her and 3 children. She has a 16- year-old son and twin 13-year-old girls. 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 She denies any history of trauma. Denies any access to guns or firearms. Tobacco Use In Past 30 Days: Yes How Often Do You Have a Drink Containing Alcohol: 4 or more times a week Hospital Course: Patient was admitted to a locked, inpatient psychiatric unit. A general medical consultation was obtained. Appropriate precautions were in place throughout patient's hospital stay. Patient was seen and examined on the unit by psychiatry and also visited by counselor. Psychotropic medications were adjusted. Patient tolerated medication changes well without significant side effects. There was no evidence of any suicidality or homicidality on the inpatient unit. There was no evidence of self-care deficit. Counselor has obtained reassuring collateral information from the patient's . On the day of discharge: Patient seen and examined with nurse. Chart reviewed. Case discussed with nursing staff. No behavioral issues noted overnight. Case discussed in treatment team. On my examination today, the patient reports that she feels ready for discharge today. She denies any suicidal or homicidal ideation intent or plan. I can elicit no severe depressive or hypomanic/manic symptoms. She denies any audiovisual hallucinations. I can elicit no delusional material. She denies side effects from medications. She does request that we return to the 50 mg dose of Atarax as she found the 25 mg dose insufficient. No acute physical complaints. Suicide and violence risk assessment on day of discharge both suggest lower imminent risk from mental illness and the patient's level of function is adequate for outpatient care. There are no acute risk factors: No suicidal or homicidal ideation, no severe depression, no impairment in reality construction, no substance intoxication. We will bolster patient's protective factors by referring her for outpatient mental health services. Patient will be discharged home today with psychiatric follow-up as arranged by counselor. Patient is also to follow up with primary care. I have discussed the case with the mid-level provider for the hospitalist service on the day of discharge. I have counseled the patient to abstain from substances of abuse. I have counseled the patient to return to psychiatric emergency room for any concerning symptoms as part of a general safety plan. - Discharge Discharge Date: 06/05/18 - Discharge Diagnosis (1) Adjustment disorder with depressed mood Diagnosis: Principal (Resolved) Code(s): F43.21 - Adjustment disorder with depressed mood Status: Resolved (2) Alcohol use Diagnosis: Secondary (Counseled to quit) Code(s): Z78.9 - Other specified health status Status: Chronic Discharge Disposition: Home - Discharge Instructions Discharge Diet: Regular Diet Activities You Can Perform: Weight Bearing As Tolerat - Discharge Time <= 30 minutes Mental Status Examination Appearance: Appropriate Consciousness: Alert Orientation: x4 Motor Activity: Normal gait, Other (No motor abnormalities noted. No signs of withdrawal noted.) Speech: Unremarkable Language: Adequate Fund of Knowledge: Adequate Attention and Concentration: Adequate Memory: Unremarkable (Grossly intact on clinical exam.) Mood: Appropriate Affect: Appropriate Thought Process & Associations: Intact, Logical, Goal directed, Linear Thought Content: Appropriate Hallucination Type: None Delusion Type: None Suicidal Ideation: No Suicidal Plan: No Suicidal Intention: No Homicidal Ideation: No Homicidal Plan: No Homicidal Intention: No Mental Status Exam Remarks: Insight and judgment are fair Discharge/Advance Care Plan - Results Vital Signs: Last Vital Signs Temp 98.6 F 06/05/18 05:51 Pulse 91 H 06/05/18 05:51 Resp 16 06/05/18 05:51 BP 132/52 L 06/05/18 05:51 Pulse Ox 99 06/05/18 05:51 Lab Results: Laboratory Results Hemoglobin A1c 5.8 % (4.3-6.0) 06/04/18 09:20 Triglycerides 84 mg/dL (42-150) 06/04/18 09:20 Cholesterol 135 mg/dL (120-200) 06/04/18 09:20 LDL Cholesterol, Calc 64 mg/dL (0-99) 06/04/18 09:20 HDL Cholesterol 54.3 mg/dL (40.0-60.0) 06/04/18 09:20 TSH 1.350 uIU/mL (0.358-3.740) 06/02/18 22:00 Summary of Procedures: None done Imaging: ITS Impressions Hand X-Ray 06/02/18 22:00 CONCLUSION: No evidence of fracture. Pending Results: None - Medications Number of antipsychotic medications at discharge: 0 - Discharge Care Plan Goals to Promote Your Health: * To prevent worsening of your condition and complications * To maintain your health at the optimal level Directions to Meet Your Goals: Take your medications as prescribed Follow your dietary instruction Follow activity as directed Keep your appointments as scheduled Take your immunizations and boosters as scheduled If your symptoms worsen call your PCP, if no PCP go to Urgent Care Center or Emergency Room For 10/04 questions related to your inpatient stay or results of tests pending at discharge, please contact Dr. Miguelito Munson MD at Smoking is Dangerous to Your Health. Avoid second hand smoking
[2018-06-05] MEDS ORDERED: Ferrous Sulfate 325 MG Tablet PO SCH (18:00)
== END 2018-06-05 17:00 | disposition home or self-care (01) ==
LOC: NEPD 21:06 → NEDA 06-03 09:26 → H260 06-03 10:42
PROVIDERS: ADMIT Psychiatry & Neurology Psychiatry; ATTEND Psychiatry & Neurology Psychiatry